=== PATIENT | male | born 1935 | race Caucasian/White ===

== ENCOUNTER 2022-02-21 14:14 | Emergency (ER) | payer OTHER ==
[~2022-02-21] VITALS: Ht 175.3 cm; Wt 70.3 kg
[~2022-02-21 14:14] MED LIST: EZET1TAB24 PO
--- NOTE | 2022-02-21 14:30 | NUR ---
Patient to ER bed 6 to gown for evaluation. Side rails up. Report given to RIANNA MCKINNEY.
[2022-02-21 14:31] VITALS: BP_SYST 104
--- NOTE | 2022-02-21 14:32 | NUR ---
ER at bedside examining patient.
--- NOTE | 2022-02-21 14:35 | NUR ---
PT SENT BY [facility] FROM HOME FOR FAILURE TO THRIVE PER REPORT.PT REFUSING PO INTAKE PER FAMILY.PT HAS NO ACUTE DISTRESS NOTED.
[2022-02-21 14:49] LABS: EOSINOPHILS % (AUTO) 0.6 % (0.0-4.0); HEMATOCRIT 32.1 % (36-54); HEMOGLOBIN 10.4 g/dL (14.0-18.0); LYMPHOCYTES # (AUTO) 0.5 K/uL (1.0-5.5); LYMPHOCYTES % (AUTO) 9.9 % (20.5-51.5); MEAN CORPUSCULAR HEMOGLOBIN 26 pg (27-31); MEAN CORPUSCULAR HGB CONC 32 % (32-36); MEAN CORPUSCULAR VOLUME 80 fL (79.0-98.0); MONOCYTES # (AUTO) 0.3 K/uL (0.0-1.0); MONOCYTES % (AUTO) 6.2 % (1.7-9.3); NEUTROPHILS % (AUTO) 82.3 % (40.0-70.0); PLATELET COUNT (AUTO) 229 K/uL (130-430); RED BLOOD CELL COUNT(AUTO) 4.01 MIL/uL (4.2-6.2); RED CELL DISTRIBUTION WIDTH 20.2 % (9.0-15.0); WHITE BLOOD COUNT (AUTO) 4.8 K/uL (4.8-10.8)
--- NOTE | 2022-02-21 14:50 | NUR ---
EKG PRINTED AND GIVEN TO FOR INTERPRETATION.
[2022-02-21 14:59] LABS: ANION GAP 7 (5-15); CALCIUM 8.1 mg/dL (8.4-11.0); CHLORIDE 99 mmol/L (98-107); CREATININE 0.93 mg/dL (0.55-1.30); GLUCOSE 78 mg/dL (70-99); POTASSIUM 4.5 mmol/L (3.5-5.1); SODIUM SERUM 135 mmol/L (136-145); UREA NITROGEN, BLOOD 22 mg/dL (8-21)
--- NOTE | 2022-02-21 15:00 | NUR ---
# 18 gauge angiocath placed to LFA. Use of asceptic technique. Opsite placed over site. Blood return noted. Flushed with 10 cc of normal saline. No evidence of infiltration noted. Patient tolerated well.
[2022-02-21 15:05] LABS: ALANINE AMINOTRANSFERASE 15 U/L (12-78); ALBUMIN 2.8 g/dL (3.4-4.8); ASPARTATE AMINOTRANSFERASE 16 U/L (10-37); TOTAL BILIRUBIN 0.4 mg/dL (0.0-1.0)
[2022-02-21 15:11] LABS: ACETONE, SERUM NEGATIVE (NEGATIVE)
[2022-02-21] MEDS: NACL 0.9% 1,000 ML IV ONE (16:38)
[2022-02-21 18:13] VITALS: BP_SYST 131
--- NOTE | 2022-02-21 18:14 | NUR ---
Patient given written and verbal discharge instructions and verbalizes understanding. ER MD discussed with patient the results and treatment provided. Patient in stable condition. ID arm band removed. IV catheter removed intact and dressing applied, no active bleeding. Rx of medications given. Patient educated on pain management and to follow up with PMD. Pain Scale . Opportunity for questions provided and answered. Medication side effect fact sheet provided.
== END 2022-02-21 18:13 | disposition home or self-care (01) ==
LOC: SED 14:14
DX: R53.1 Weakness (principal); Z79.899 Other long term (current) drug therapy
CPT/HCPCS: 36415; 71045; 80053; 81002; 82009; 83605; 85025; 93005; 96360; 99283; J7030